=== PATIENT | female | born 1990 | race Caucasian/White ===

== ENCOUNTER 2022-07-20 08:25 | Outpatient (REF) | payer OTHER, SELFPAY ==
[2022-07-20 11:39] LABS: MANUAL DIFF FLAG NO
[2022-07-20 12:06] LABS: Basophils Percent Auto 0.8 % (0-2); Eosinophils Absolute Auto 0.2 X10*3/uL (0.0-0.4); Eosinophils Percent Auto 4.4 % (0-4); Hematocrit 45.9 % (37.0-47.0); Hemoglobin 14.9 g/dl (12.0-16.0); Imm Gran Abs Auto 0.01 X10*3/uL (0.00-0.03); Imm Gran Pct Auto 0.2 % (0.0-0.4); Lymphocytes Absolute Auto 1.9 X10*3/uL (1.2-4.9); Lymphocytes Percent Auto 36.1 % (20-40); Mean Corpuscular HGB Conc 32.5 g/dl (31.0-35.0); Mean Corpuscular Hemoglobin 29.2 pg (27.0-33.0); Mean Platelet Volume 11.5 fL (9.4-12.3); Monocytes Absolute Auto 0.5 X10*3/uL (0.1-1.2); Monocytes Percent Auto 8.8 % (2-11); Neutrophils Absolute Auto 2.6 x10*3/uL (2.0-8.3); Neutrophils Percent Auto 49.7 % (45-73); Platelet Count 213 X10*3/uL (160-400); Red Cell Distribution Width 12.6 % (11.0-16.0); White Blood Count 5.2 X10*3/uL (4.8-10.8)
[2022-07-20 13:01] LABS: Alanine Aminotransferase 27 U/L (0-31); Albumin Level 4.5 g/dL (3.5-5.0); Alkaline Phosphatase 73 U/L (39-117); Anion Gap 9 (12-20); Aspartate Amino Transferase 19 U/L (5-31); Bilirubin Total 1.9 mg/dL (0.0-1.0); Blood Urea Nitrogen 16 mg/dL (9-16); Calcium 9.6 mg/dL (8.4-10.2); Carbon Dioxide 30 mmol/L (22-29); Chloride 107 mmol/L (96-108); Cholesterol 149 mg/dL; Estimated Glomerular Filt Rate > 60; Glucose Fasting 105 mg/dL (60-99); HDL Cholesterol 58 mg/dL; LDL Cholesterol Calculated 75 mg/dl; Sodium 141 mmol/L (135-145); Total Protein 6.9 g/dL (6.5-8.0); Triglycerides 83 mg/dL
[2022-07-20 13:17] LABS: TSH reflex Free T4 1.69 uIU/mL (0.32-4.0)
[2022-07-20 14:15] LABS: Appearance Urine Clear; Color Urine Yellow; Glucose Urine UA Negative (Negative); Leukocyte Esterase Urine Negative (Negative); Nitrite Urine Negative (Negative); PH 5.5 (5.0-9.0); Specific Gravity - Urine 1.015 (1.005-1.025); Urine Blood Negative (Negative); Urine Ketones Negative (Negative); Urine Protein Negative (Neg-Trace)
[2022-07-20 14:20] LABS: Bacteria Urine None Seen (None Seen); Hyaline Casts Urine 0-2 /LPF (0-2); RBC Urine 0-2 /HPF (0-2); Squamous Epithelial Cell Urine 0-2 /HPF (0-2); WBC Urine 0-5 /HPF (0-5)
[2022-07-21 04:58] LABS: Hepatitis A Antibody IgG REACTIVE (Nonreactive); Hepatitis A Antibody IgM 0.16 Index (0-0.79); ~Hepatitis A Antibody IgM Nonreactive (Nonreactive)
[2022-07-24 21:58] LABS: Hepatitis Delta Antibody NEGATIVE
== END 2022-07-20 08:26 | disposition home or self-care (01) ==
LOC: HO.HMGCLDS 08:25
PROVIDERS: PCP Internal Medicine; Visit Provider Internal Medicine
DX: Z00.00 Encounter for general adult medical examination without abnormal findings (principal); Z77.21 Contact with and (suspected) exposure to potentially hazardous body fluids
CPT/HCPCS: 36415; 80053; 80061; 81001; 84443; 85025; 86692; 86708; 86709

== ENCOUNTER 2023-03-07 12:11 | Outpatient (AMB) | payer OTHER, SELFPAY ==
--- NOTE | 2023-03-07 12:20 | A.OFFPC_ITS ---
Vital Signs 03/07/23 12:22 Height 5 ft 9 in Weight 158 lb BMI 23.3 BP 110/60 Blood Pressure Location Rt brachial Position Sitting Pulse 68 Pulse Source Pulse Oximeter Pulse Oximetry (%) 95 Oxygen Delivery Method Room Air Intake Visit Reasons: R shoulder pain after fall Intake Note: Patient here for right shoulder pain. Allergies No Known Allergies Allergy (Verified 03/07/23 12:23) Medication List - Last Reconciled 03/07/23 by Jordana Krause MD triamcinolone acetonide 0.1% 1 appl dental BID valacyclovir (Valtrex) 2,000 mg (2 x 1 gram) PO Q12H Tobacco use date assessed: 07/20/22 Dental Screening Dental Screen Date: 03/07/23 Did you have a dental visit in the last 12 months?: No Did you have a dental problem in the last 6 months where you did not have access to dental care?: No Was dental information given to patient?: Patient has dentist HPI R shoulder pain after fall HPI Details Pt fell down on the right shoulder 6 weeks ago. Patient complains of persistent pain when reaching overhead and noticed a bump on the top of the shoulder joint slightly tender. Patient has been working out at the gym but modifying his weight lifting exercises. PFSH Family History Mother Substance use disorder Father Prostate [place] Social History Household Members Other:: single, welll balanced, Housing: House Patient Tobacco Use Status: Never used Tobacco e-Cigarette/Vaping Use: Never Used service: No Current occupational status: employed Cognitive needs: No Hearing needs: No Vision needs: No Questionnaire Thrive Questionnaire Date Thrive assessed: 07/20/22 KHANH-7 AMB Questionnaire KHANH-7 Date KHANH - 7 assessed: 07/20/22 Source: Developed by Drs. Juanjo Platt, Marisabel Haas, Delfino Phelan and colleagues, with an educational cooper from [employer]. Review of Systems Const All systems reviewed & are unremarkable except as noted in HPI and below Reports no additional complaints Eyes Reports no additional complaints Resp Reports no additional complaints GI Reports no additional complaints Physical exam (Primary Care) Vital Signs: Last Vital Signs Pulse 68 03/07/23 12:22 BP 110/60 03/07/23 12:22 Pulse Ox 95 03/07/23 12:22 Oxygen Delivery Method Room Air 03/07/23 12:22 BMI result Body Mass Index 23.3 Tobacco/Smoking Status: Tobacco use Status Tobacco use date assessed 07/20/22 03/07/23 12:25 Patient Tobacco Use Status Never used Tobacco 03/07/23 12:25 e-Cigarette/Vaping Use Never Used 03/07/23 12:25 Thrive Assessment: Date of Thrive Assessment Date Thrive assessed 07/20/22 03/07/23 12:25 Const General: no acute distress Neck Neck: Yes no lymphadenopathy and Yes supple Resp Effort & Inspection: normal respiratory effort Auscultation: clear to auscultation bilaterally Cardio Rhythm: regular rhythm Heart sounds: S1 normal heart sound present and S2 normal heart sound present Extrem Other: slightly decreased range of motion right shoulder, slightly more pronounced distant clavicle on the right with slight tenderness General: Yes no clubbing, cyanosis or edema Assessment and Plan Assessment & Plan (1) Injury of shoulder: Comment: R shoulder Code(s): S49.90XA - Unspecified injury of shoulder and upper arm, unspecified arm, initial encounter Plan: Obtain shoulder x-ray and referred for physical therapy Orders: Orders XR shoulder RT min 2V Today S49.90XA - Unspecified injury of shoulder and upper arm, unspecified arm, initial encounter PT Evaluation and Treatment Today S49.90XA - Unspecified injury of shoulder and upper arm, unspecified arm, initial encounter Coding Level of Care Code Est Pt Level 3 (75113) Diagnoses Injury of shoulder S49.90XA
[2023-03-07 12:22] VITALS: BP 110/60; PULSE 68; O2SAT 95; BMI 23.3
== END 2023-03-07 13:32 | disposition home or self-care (01) ==
PROVIDERS: PCP Internal Medicine; Visit Provider Internal Medicine
DX: S49.90XA Unspecified injury of shoulder and upper arm, unspecified arm, initial encounter (principal)
CPT/HCPCS: 99213

== ENCOUNTER 2023-03-07 13:04 | Outpatient (REF) | payer OTHER, SELFPAY ==
--- NOTE | ~2023-03-07 | XR_ITS ---
EXAMINATION: XR SHOULDER, RIGHT CLINICAL INFORMATION: Injury COMPARISON: None available. TECHNIQUE: AP external rotation, Grashey, scapular Y, and axillary views of the right shoulder. FINDINGS: Mild acromioclavicular arthritis. No evidence of acute fracture or dislocation. Glenohumeral joint space is maintained. No abnormal soft tissue calcification. No suspicious lung findings. XR/XR shoulder RT min 2V IMPRESSION: Mild acromioclavicular arthritis.
== END 2023-03-07 13:05 | disposition home or self-care (01) ==
LOC: HO.HMGCX 13:04
PROVIDERS: PCP Internal Medicine; Visit Provider Internal Medicine
DX: S49.91XA Unspecified injury of right shoulder and upper arm, initial encounter (principal); X58.XXXA Exposure to other specified factors, initial encounter; Y93.9 Activity, unspecified; Y92.9 Unspecified place or not applicable; Y99.9 Unspecified external cause status
CPT/HCPCS: 73030

== ENCOUNTER 2024-05-03 15:05 | Outpatient (AMB) | payer OTHER, SELFPAY ==
--- NOTE | 2024-05-03 15:13 | MHC.OFFVIS ---
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 Patient reports he was at work when he fell in an attic landing on his shoulder on a piece of wood. He has attended PT and acupuncture which provided temporary relief. He did not seek care, however his pain had gotten within the month and followed up with his PCP. Currently he has constant pain that radiates up into his neck. Intermittent swelling and a tender lump located above his shoulder. He has pain with ROM mostly with reaching behind his back. 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 States he was in an attic when he fell landing directly on the right shoulder sideways. He was seen by his primary care doctor when x-rays were taken and he was referred to physical therapy. Also had acupuncture. He states neither of these modalities has helped his pain. Continues to have some difficulty with motion and activity. [facility] Family History Mother Substance use disorder Father Prostate CA Social History (Updated 05/03/24 @ 15:18 by Anna Toussaint [facility]) Household Members Other:: single, welll balanced, Housing: House Patient Tobacco Use Status: Never used Tobacco e-Cigarette/Vaping Use: Never Used service: No Current occupational status: employed Current occupation: electric vehicle electrician, right hand dominant Cognitive needs: No Hearing needs: No Vision needs: No Review of Systems Const All systems reviewed & are unremarkable except as noted in HPI and below Physical Exam Vital Signs: BMI result Body Mass Index 23.6 Extrem Other: Right shoulder has a bony prominence with tenderness over the AC joint. Bony prominence is not reducible with pressure. He has full range of motion without deficits. No weakness with rotator cuff strength testing. Neurovascularly intact. Results Reviewed Results Reviewed: X-rays of the right shoulder obtained in the office today and reviewed by me show what appears to be an acromion fracture with callus bone. No other acute or chronic abnormalities noted. Assessment & Plan Assessment & Plan (1) Separation of right acromioclavicular joint: Code(s): S43.101A - Unspecified dislocation of right acromioclavicular joint, initial encounter Category: Medical (2) Fracture of acromion of scapula: Code(s): S42.123A - Displaced fracture of acromial process, unspecified shoulder, initial encounter for closed fracture Category: Medical Plan At this time an MRI of the right shoulder has been ordered to further evaluate the extent of the injury along the acromion process and within the shoulder and coracoclavicular ligament region. I explained to the patient that given that the injury happened in January I am unsure if there is any surgical intervention that would be beneficial to him at this time for a bony abnormality. If in fact there are some ligamentous abnormalities we can discuss treatment options. Patient is content with this plan and will see us back once the scan is complete. Orders: Orders MR shoulder RT wo con Today M77.8 - Other enthesopathies, not elsewhere classified, S42.123A - Displaced fracture of acromial process, unspecified shoulder, initial encounter for closed fracture, S43.101A - Unspecified dislocation of right acromioclavicular joint, initial encounter Coding Level of Care Code New Pt Level 3 (67254) Complex EM visit Add On G2211 Diagnoses Separation of right acromioclavicular joint S43.101A Fracture of acromion of scapula S42.123A
[2024-05-03 15:17] VITALS: BMI 23.6
--- OUTSIDE RECORDS SUMMARY | 2024-05-03 16:46 | XMS_ITS | Encounter Summary ---
Author Name [facility] Address [address] [place] [address] Care Team Providers Care Pool Servicer Name Role Phone ADRIA DUNBAR Primary Care Provider Unav ailable Insurance Providers: All historical and current Section Date Range: From patient's date of to the date document was created. This section includes the names of all active insurance providers for the patient. Insurance Provider Type of Coverage Plan Name Start of Policy Coverage End of Policy Coverage Group Number Member ID Insurance Provider's Telephone Number Policy Barnett's Name Patient's Relationship to Policy Barnett MEDICAID MEDICAID [facility]REC T May 26, 2022 [id number] PHAM PATIENT [facility]GANIZ May 26, 2022 [id number] GERRY PHAM PATIENT Selected Encounter This section includes the information on record at [place] for the Encounter. Date/Time Encounter Type Encounter Description Reason Provider Source Jul 05, 2023 02:00 PM OFFICE O/P NEW LOW 30 MIN PM&RS PHYSICIAN ICD-10-CM S43.51XA Sprain of right acromioclavicular joint, initial encounter NASREEN MOONEY E Encounter Template Text not used by [place] Assessments - Encounter Diagnoses This section includes the primary and secondary diagnoses documented for the Encounter. Date/Time Primary/Secondary Diagnosis Diagnosis Name Provider Source Aug 06, 2023 10:00 AM PRIMARY Sprain of right acromioclavicular joint, initial encounter NASREEN MOONEY [facility] Vital Signs: All taken on the encounter date This section contains inpatient and outpatient Vital Signs collected on the date of the Encounter. Date/Time Temperature Pulse Blood Pressure Respiratory Rate SP02 Pain Height Weight Body Mass Index Source Jul 05, 2023 02:01 PM 67 130/80 18 98 4 [facility] Social History: Smoking Status (Most current) and Tobacco Use (All prior to encounter date) This section includes the most current, and the historical, smoking and tobacco- related health factors from the [place] facility where the Encounter took place. Current Smoking Status This section includes the most current smoking, or tobacco-related health factor, from the [place] facility where the Encounter took place. Date/Time Current Smoking Status Comment Facil ity Jun 27, 2023 10:00 AM [place]-TOBACCO NEVER USED [facility] Tobacco Use History This section includes a history of the smoking, or tobacco-related health factors, that were collected on or before the date of the Encounter. The data comes from the [place] facility where the Encounter took place. Date/Time Smoking Status/Tobacco Use Comment F acility Sep 30, 2021 09:03 AM [place]-TOBACCO NEVER USED [facility] Encounter Notes: All associated encounter notes This section contains the clinical notes associated to the Encounter. Date/Time Encounter Note(s) Provider Source Jul 05, 2023 02:38 PM PHYSICAL MEDICINE REHAB CONSULT: LOCAL TITLE: CONSULT REPORT/PM&R STANDARD TITLE: PHYSICAL MEDICINE REHAB CONSULT DATE OF NOTE: JUL 05, 2023@14:38 ENTRY DATE: JUL 05, 2023@14:38:20 AUTHOR: KADI MOONEY COSIGNER: URGENCY: STATUS: COMPLETED JUL 05, 2023 DEDE PHAM is a 32 y/o RHD WHITE MALE, previously in AIR [employer] FROM Sep TO Jun from [employer] OF [employer] - [employer], who was seen today for consultation requested by _ today for chief complaint of right shoulder pain. Onset/Course: Fell out of an attic in January falling on the right shoulder. Trauma/inciting events: Fall directly on the right shoulder Quality/associated symptoms: Pain over the top of the shoulder is an aching sensation. Seems to be slightly better. He is working with a physical therapist and working on strengthening the muscles around the shoulder. 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 This likely is why it has taken so long to improve. He does not favor the use of anti-inflammatories so tends not to use. Denies weakness, numbness, or tingling in the lower extremities. Radiation: None Aggravating factors: Lifting overhead, reaching behind his back bent over rows throwing Alleviating factors: Rest Severity: 08/02/09 Overall average level of function: 08/02/09 Timing: intermittent) Medications/Therapy/Intervent ions history: Had a few sessions of occupational therapy then started to work with his physical therapist Systemic/Other symptoms: Denies fever, chills, night sweats, weight loss, saddle paresthesia, or bowel/bladder incontinence. Daily activities/exercise: Enjoys working out. Enjoys hiking. Enjoys hockey. He is an avid golfer. Has not been golfing yet this season. Pertinent prior procedures and/or imaging: PMHx as obtained from Chart: Active problems - Computerized Problem List is the source for the followin. Aphthous ulcer of mouth 2. Traveler's diarrhoea 3. Hyperbilirubinaemia 4. Irritable bowel syndrome with diarrhoea 5. Family history of prostate cancer PSxHx: None Fam Hx: Noncontributory Soc Hx: MARITAL STATUS - NEVER AIR FORCE FROM Sep TO Jun Service Connected Disabilities with % Eligibility: SERVICE CONNECTED 50% to 100% VERIFIED Total S/C %: 50 IRRITABLE COLON 30% S/C TINNITUS 10% S/C SPONDYLOLISTHESIS OR SEGMENTAL INSTABILITY 10% S/C ALLERGIC OR VASOMOTOR RHINITIS 10% S/C ALL: Patient has answered NKA MEDS: Active Outpatient Medications (including Supplies): DICLOFENAC NA 1% TOP GEL APPLY 2 GRAMS TOPICALLY FOUR PENDING TIMES A DAY FOR OSTEOARTHRITIS - USE DOSING CARD PROVIDED IN BOX TRIAMCINOLONE ACETONIDE 0.1% DENT PASTE APPLY SMALL AMOUNT ACTIVE TOPICALLY ONCE DAILY FOR PAINFUL, RED OR SWOLLEN MOUTH APPLY TO ORAL ULCERS No Active Remote Medications for this patient ROS: Constitutional - Denies fever or chills, night sweats, or unexplained weight loss. Head/Eyes/Ears/Neck- Denies headaches, dizziness, visual changes. Cardiovascular - Denies chest pain/palpitations, lower extremity swelling. Respiratory - Denies shortness of breath, or cough. GI - Denies nausea, vomiting, or loss of bowel fx/control. - Denies urinary difficulties or loss of bladder function. Musculoskeletal - See HPI. Neuro - See HPI. Psychiatric - See PMHx. Denies mood swings or change in behavior. Sleep - Denies nocturnal pain or excessive daytime fatigue. Skin/integuments - Denies rashes, lesions, or skin breakdown in the extremities. All other systems reviewed and are negative. PHYSICAL EXAMINATION: Vitals in chart. GEN: WD, WN. Awake, alert, cooperative with exam. In NAD. PSYCH: Good eye contact. Normal mood. Appropriately concerned. CVS: Extremities warm/well perfused. No lower extremity edema appreciated. PULM: Breathing unlabored, no accessory muscle use. ABD: Nondistended. EXTREMITIES: No cyanosis or edema of bilateral upper and lower extremities. SKIN: No rashes, lesions, or skin breakdown over exposed areas. MUSCULOSKELETAL/NEURO EXAM: Slightly more prominent AC joint. Tenderness over the AC joint with positive cross body abduction test. Negative liftoff test. No irritability about the biceps tendon. Rotator cuff is intact with internal and external rotation. No weakness. No pain elicited with resisted external rotation. No significant swelling noted about the acromioclavicular joint at this point. Range of motion is symmetrical but pain is in full flexion. Labs: Collection DT Spec WBC HGB HCT PLT K+/Pot Sodium GLUCOSE 06/01/2022 10:25 SERUM 4.9 139 96 06/01/2022 10:25 BLOOD 5.38 14.4 43.6 250 Collection DT Spec CREATIN AST ALT T BILI ALK AMY CHOL LDL-c 06/01/2022 10:25 SERUM 0.93 26 42 1.5 H 55 150 90 Collection DT Spec HDL TRIG TSH 06/01/2022 10:25 SERUM 49 57 1.28 CHEM 7 TREND LAB CUMULATIVE SELECTED Collection DT Spec GLUCOSE BUN CREATIN Sodium K+/Pot CL CO2 06/01/2022 10:25 SERUM 96 16 0.93 139 4.9 103 27 LAB CUMULATIVE SELECTED 2 No selection items chosen for this component. CHEM 7 Results Collection DT Spec Sodium K+/Pot CL CO2 GLUCOSE BUN 06/01/2022 10:25 SERUM 139 4.9 103 27 96 16 Liver Function Tests No data available for: AST ALT ALKALINE PHOSPHATASE ALBUMIN BILIRUBIN, TOTAL LDH PROTEIN,TOTAL HEMOGLOBIN A1C TREND No data available Diagnostic Studies: X-rays were reviewed and there are some slight elevation of the acromioclavicular joint. ASSESSMENT/PLAN: Patient is a 32-year-old [place] Had grade 1 AC sprain. Seems to be scarring again at this point. Trial of diclofenac gel will be provided. Continue working on strengthening. Limit overhead lifting activity until pain-free. Continue to work on scapular stabilizing muscles FOLLOW-UP:as needed Potential risks and side effects of any medication(s) prescribed today was reviewed with . Patient had many excellent questions, which I answered to the best of my ability and to patient's apparent satisfaction. MDM: 30 minutes which includes reviewing records, evaluating patient, documenting in medical record, educating, counseling and coordinating care. Medication Reconciliation: Outpatient: Has the patient been taking medications as documented in the EMLR? YES: The patient has been taking medications as documented in the EMLR. Essential Medication List for Review used to complete this medication reconciliation. INCLUDED IN THIS LIST: Alphabetical list of active outpatient prescriptions dispensed from this [facility] (local) and dispensed from another VA or [facility] facility (remote) as well as inpatient orders (local, pending and active), local clinic medications, locally documented non-VA medications, and local prescriptions that have or been discontinued in the past 90 days. - All changes in medications, including all non-VA/Herbal/OTC medications were entered into CPRS. - If there were any medications the patient should no longer take, they were discontinued. - The patient/caregiver was instructed to update this list, discard old lists, and take this list to the next appointment, whether with a VA or non-VA provider. /shreyas/ KADI MOONEY [facility] Signed: 07/05/2023 14:46 KADI MOONEY [facility]
--- OUTSIDE RECORDS SUMMARY | 2024-05-03 16:46 | XMS_ITS ---
Author Name [facility] [place] [facility] [place] Address [address] [place] [address] Care Team Providers Care World Geography Teacher Name Role Phone ADRIA DUNBAR Primary Care [...] Patient's Relationship to Policy [place] MEDICAID MEDICAID [facility] DIRE T May 26, 2022 [id number] GERRY PHAM PATIENT [facility] CE ORGANIZ May 26, 2022 [id number] GERRY PHAM PATIENT Selected Encounter This section includes the information on record at [place] for the Encounter. Date/Time Encounter Type Encounter Description Reason Provider Source Jun 27, 2023 10:00 AM OFFICE O/P EST LOW 20 MIN PRIMARY CARE/MEDICINE ICD-10-CM M25.511 Pain in right shoulder Lavern DUNBAR [place] Encounter Template Text not used by [place] Assessments - Encounter Diagnoses This section includes the primary and secondary diagnoses documented for the Encounter. Date/Time Primary/Secondary Diagnosis Diagnosis Name Provider Source Jun 27, 2023 10:30 AM PRIMARY Pain in right shoulder Lavern DUNBAR [place] [facility] [place] [facility] Jun 27, 2023 10:30 AM SECONDARY Family history of malignant neoplasm of prostate Lavern DUNBARJESSICA [place] [facility] [employer], [place] [facility] Plan of Treatment: Future Appointments (+ 6 months) and Future Tests (+/- 45 days) The Plan of Treatment section includes future care activities for the patient from all [place] treatmentfacilities. This section includes future appointments and future orders which are active, pending or scheduled. Future Appointments This section includes appointments that were scheduled to occur 6 months from the date of the Encounter, up to a maximum of 20 appointments. The data comes from all [place] treatment facilities. Appointment Date/Time Appointment Type Appointme nt Facility Name Jul 05, 2023 02:00 PM AMBULATORY - [facility] Vital Signs: All taken on the encounter date This section contains inpatient and outpatient Vital Signs collected on the date of the Encounter. Date/Time Temperature Pulse Blood Pressure Respiratory Rate SP02 Pain Height Weight Body Mass Index Source Jun 27, 2023 10:07 AM 75 99/62 18 97 155 23 [facility] Social History: Smoking Status (Most current) and Tobacco Use (All prior to encounter date) This section includes the most current, and the historical, smoking and tobacco- related health factors from the [place] facility where the Encounter took place. Current Smoking Status This section includes the most current smoking, or tobacco-related health factor, from the [place] facility where the Encounter took place. Date/Time Current Smoking Status Comment Sami ity Jun 27, 2023 10:00 AM [place]-TOBACCO NEVER USED [facility] [employer], INCN [facility] Tobacco Use History This section includes a history of the smoking, or tobacco-related health factors, that were collected on or before the date of the Encounter. The data comes from the [place] facility where the Encounter took place. Date/Time Smoking Status/Tobacco Use Comment F acility Sep 30, 2021 09:03 AM [place]-TOBAC[place] NEVER USED [facility] [place] [facility] Encounter Notes: All associated encounter notes This section contains the clinical notes associated to the Encounter. Date/Time Encounter Note(s) Provider Source Jun 27, 2023 10:09 AM PREVENTIVE MEDICINE NURSING NOTE: LOCAL TITLE: CLINICAL REMINDERS/NURSING STANDARD TITLE: PREVENTIVE MEDICINE NURSING NOTE DATE OF NOTE: JUN 27, 2023@10:09 ENTRY DATE: JUN 27, 2023@10:10:01 AUTHOR: JESSICA NYE COSIGNER: URGENCY: STATUS: COMPLETED Homelessness/Food Insecurity Screen: In the past 2 months, have you been living in stable housing that you own, rent, or stay in as part of a household? Yes - Living in stable housing. Are you worried or concerned that in the next 2 months you may NOT have stable housing that you own, rent, or stay in as part of a household? No - Not worried about housing near future [facility] [place] reports the following: Within the past 12 months, you worried whether your food would run out before you got money to buy more. Never true Within the past 12 months, the food you bought just didn't last and you didn't have money to get more. Never true Depression Screening: Perform PHQ-2 A PHQ-2 screen was performed. The score was 0 which is a negative screen for depression. Over the past two weeks, how often have you been bothered by the following problems? 1. Little interest or pleasure in doing things Not at all 2. Feeling down, depressed, or hopeless Not at all Tobacco Use Screening: The patient has never used tobacco. PTSD Screening: PC-PTSD-5 A PTSD screening test (PC-PTSD-5) was negative (score=0). IN THE PAST MONTH, have you ever had any experience that was so frightening, horrible or traumatic. For example: A serious accident or fire a physical or sexual assault or abuse An earthquake or flood A war Seeing someone be killed or seriously injured Having a loved one through homicide or suicide 1. Have you ever experienced this kind of event? NO 2. Had nightmares about the event(s) or thought about the event(s) when you did not want to? Response not required due to responses to other questions. 3. Tried hard not to think about the event(s) or went out of your way to avoid situations that reminded you of the event(s)? Response not required due to responses to other questions. 4. Been constantly on guard, watchful, or easily startled? Response not required due to responses to other questions. 5. Fisher numb or detached from people, activities, or your surroundings? Response not required due to responses to other questions. 6. Fisher guilty or unable to stop blaming yourself or others for the event(s) or any problems the event(s) may have caused? Response not required due to responses to other questions. Alcohol Use Screen (AUDIT-C): Alcohol Screen: SCREEN FOR ALCOHOL (AUDIT-C) An alcohol screening test (AUDIT-C) was negative (score=0). 1. How often did you have a drink containing alcohol in the past year? Consider a drink to be a 12 ounce can or bottle of regular beer, 8 ounces of malt liquor, a 5 ounce glass of table wine, or a 1.5 ounce shot of liquor (like scotch, gin, or vodka). Never 2. How many drinks containing alcohol did you have on a typical day when you were drinking in the past year? Response not required due to responses to other questions. 3. How often did you have six or more drinks on one occasion in the past year? Response not required due to responses to other questions. Suicide Screen: C-SSRS Screening [place] Suicide Severity Rating Scale (C-SSRS) screener 1. Over the past month, have you wished you were or wished you could go to sleep and not wake up? No 2. Over the past month, have you had any actual thoughts of killing yourself? No 3. Over the past month, have you been thinking about how you might do this? Response not required due to responses to other questions. 4. Over the past month, have you had these thoughts and had some intention of acting on them? Response not required due to responses to other questions. 5. Over the past month, have you started to work out or worked out the details of how to kill yourself? Response not required due to responses to other questions. 6. If yes, at any time in the past month did you intend to carry out this plan? Response not required due to responses to other questions. 7. In your lifetime, have you ever done anything, started to do anything, or prepared to do anything to end your life (for example, collected pills, obtained a gun, gave away valuables, went to the roof but didn't jump)? No 8. If YES, was this within the past 3 months? Response not required due to responses to other questions. /shreyas/ Jessica Nye RN Primary Care Staff Nurse Signed: 06/27/2023 10:11 JESSICA NYE [place] [facility] [place] [facility] Jun 27, 2023 09:11 AM PHYSICIAN NOTE: LOCAL TITLE: MD NOTE STANDARD TITLE: PHYSICIAN NOTE DATE OF NOTE: JUN 27, 2023@09:11 ENTRY DATE: JUN 27, 2023@09:11:28 AUTHOR: ZURI DUNBAR EXP COSIGNER: URGENCY: STATUS: COMPLETED HISTORY OF PRESENT ILLNESS: DEDE PHAM, is a 32 yo WHITE MALE who presents at the [place] [facility]. shoulder pain HPI. vet fell on right shoulder 4 mos ago, sustained injury to right shoulder with visible lump on superior aspect. he has pain and limited ROM. he has tried phys tx with limited response. plain xrays revealed AC arthritis and he has consult with med rehab next week. He denies weakness or numbness in his right arm or hand. vet has oral ulcers which respond to steroid paste SH. rare etoh intake Active problems - Computerized Problem List is the source for the followin. Aphthous ulcer of mouth 2. Traveler's diarrhoea 3. Hyperbilirubinaemia 4. Irritable bowel syndrome with diarrhoea 5. Family history of prostate cancer HISTORY: PERIOD OF SERVICE - [employer] FROM Sep TO Jun COMBAT SERVICE INDICATED: No SERVICE CONNECTED % - 50 VITAL SIGNS: Temperature 99.1 F [37.3 C] (06/02/2022 15:44) Blood Pressure 115/71 (06/02/2022 15:44) Pulse 75 (06/02/2022 15:44) Respiration 16 (06/02/2022 15:44) Pain 3 (06/02/2022 15:44) BMI BMI: 22.6 Weight 153 lb [69.40 kg] (06/02/2022 15:44) Pulse Oximetry 96% (06/02/2022 15:44) Review of Systems: CONSTITUTIONAL: No fever, no loss of appetite ENT: No sore throat, no cough CARDIOVASCULAR: No chest pain, no palpitations RESPIRATORY: No SOB, no wheezing GASTROINTESTINAL: No abd pain, no N/V/D, no change in stool EXAMINATION General: Well-appearing, young gentleman in no obvious distress. Mental Status: Alert and oriented x 3 Head: Normocephalic. Ext: large lump over Right AC joint of shoulder/ limited ROM Neuro: Normal speech & gait Psych: Normal mood and affect. Normal judgment. DATA REVIEW >> MEDICATIONS Reviewed Today (VA & Non VA) ALLERGIES: Patient has answered NKA Active Outpatient Medications (including Supplies): No Medications Found >> LABS REVIEWED TODAY: CHEM 7 TREND LAB CUMULATIVE SELECTED Collection DT Spec GLUCOSE BUN CREATIN Sodium K+/Pot CL CO2 06/01/2022 10:25 SERUM 96 16 0.93 139 4.9 103 27 LAB CUMULATIVE SELECTED 2 No selection items chosen for this component. CHEM 7 Results Collection DT Spec Sodium K+/Pot CL CO2 GLUCOSE BUN 06/01/2022 10:25 SERUM 139 4.9 103 27 96 16 CBC TREND Collection DT Spec WBC RBC HGB HCT MCV MCH PLT 06/01/2022 10:25 BLOOD 5.38 4.99 14.4 43.6 87.4 28.9 250 HEMOGLOBIN A1C TREND No data available LIPID PANEL TREND Collection DT Spec CHOL HDL CHO/HDL LDL-c TRIG 06/01/2022 10:25 SERUM 150 49 3.1 90 57 UREA NITROGEN - NONE FOUND CREATININE-EGFR - NONE FOUND LIVER PANEL TREND Collection DT Spec AST ALT T BILI ALK AMY T. PROT ALBUMIN 06/01/2022 10:25 SERUM 26 42 1.5 H 55 7.1 4.2 PSA TREND No data available Collection DT Spec TSH 06/01/2022 10:25 SERUM 1.28 ANEMIA PANEL TREND Collection DT Spec HCT 06/01/2022 10:25 BLOOD 43.6 PT INR TREND No data available >> HEALTH MAINTENANCE PREVENTIVE MEDICINE GOALS Advance Directive Screen MH AD Sep 30 Suicide Screen Sep 30 Toxic Exposure Screening DUE NOW BMI>30/>24.99 High Risk DUE NOW Homelessness/Food Insecurity Screen Sep 30 Depression Screening Sep 30 Screen for Embedded Fragments DUE NOW Hepatitis B Serology/Immunization DUE NOW HIV Screening DUE NOW PTSD Screening Sep 30 Tobacco Use Screening Sep 30 Influenza Immunization DUE NOW Medication Reconciliation DUE NOW Alcohol Use Screen (AUDIT-C) Sep 30 COVID-19 Immunization DUE NOW Sexual Orientation Jun 02 RHS Screen DUE NOW ASSESSMENT/PLAN: 1. shoulder pain/ AC arthritis and soft tissue swelling 2. FH of prostate cancer Plan 1. vet to see Med rehab next week about plan for shoulder pain 2. d/w vet issue of FH of prostate cancer, he may choose to have PSA testing done in his 30s since father was dx'd age 45 3. vet will f/u w/ this PCP in one year 4. refilled triamcinolone oral paste for oral ulcers LAB ORDERS FOR NEXT APPT. spent in patient care and education No barriers; Patient understands and agrees to current treatment plan. If pt has any questions, concerns, or changes in current health status he/she will call or come in to the [facility]. Medication Reconciliation: Outpatient: Has the patient been taking medications as documented in the EMLR? YES: The patient has been taking medications as documented in the EMLR. Essential Medication List for Review used to complete this medication reconciliation. INCLUDED IN THIS LIST: Alphabetical list of active outpatient prescriptions dispensed from this [place] (local) and dispensed from another [place] or [facility] facility (remote) as well as inpatient orders [...] with a VA or non-VA provider. /shreyas/ ADRIA DUNBAR MD PHYSICIAN Signed: 06/27/2023 10:30 MITCH DUNBAR [place] [facility]
--- OUTSIDE RECORDS SUMMARY | 2024-05-03 16:46 | XMS_ITS | Encounter Summary ---
Author Name [facility] Address [address] [place] [address] Care Team Providers Care Wound/Ostomy Nurse Name Role Phone ADRIA DUNBAR Primary Care [...] Patient's Relationship to Policy [place] MEDICAID MEDICAID [facility] DIRE T May 26, 2022 [id number] GERRY PHAM [facility]IENT [facility] May 26, 2022 [id number] GERRY PHAM PATIENT Selected Encounter This section includes the information on record at [place] for the Encounter. Date/Time Encounter Type Encounter Description Reason Provider Source May 10, 2023 07:30 AM THERAPEUTIC EXERCISES OCCUPATIONAL THERAPY ICD-10-CM M25.511 Pain in right shoulder MACHON,MORAIMA E IHE Encounter Template Text not used by [place] Assessments - Encounter Diagnoses This section includes the primary and secondary diagnoses documented for the Encounter. Date/Time Primary/Secondary Diagnosis Diagnosis Name Provider Source May 10, 2023 09:36 AM PRIMARY Pain in right shoulder MACHON,MORAIMA E [facility] Plan of Treatment: Future Appointments (+ 6 months) and Future Tests (+/- 45 days) The Plan of Treatment section includes future care activities for the patient from all [place] treatmentfacilities. This section includes future appointments and future orders which are active, pending or scheduled. Future Appointments This section includes appointments that were scheduled to occur 6 months from the date of the Encounter, up to a maximum of 20 appointments. The data comes from all [place] treatment facilities. Appointment Date/Time Appointment Type Appointme nt Facility Name Jun 27, 2023 10:00 AM AMBULATORY - MEDICINE [facility] Jul 05, 2023 02:00 PM AMBULATORY - REHAB MEDICIN E [facility] Social History: Smoking Status (Most current) and Tobacco Use (All prior to encounter date) This section includes the most current, and the historical, smoking and tobacco- related health factors from the [place] facility where the Encounter took place. Current Smoking Status This section includes the most current smoking, or tobacco-related health factor, from the [place] facility where the Encounter took place. Date/Time Current Smoking Status Comment Facil ity Sep 30, 2021 09:03 AM [place]-TOBACCO NEVER USED [facility] Encounter Notes: All associated encounter notes This section contains the clinical notes associated to the Encounter. Date/Time Encounter Note(s) Provider Source May 10, 2023 09:36 AM ADDENDUM: LOCAL TITLE: Addendum STANDARD TITLE: ADDENDUM DATE OF NOTE: MAY 10, 2023@09:36:27 ENTRY DATE: MAY 10, 2023@09:36:28 AUTHOR: MORAIMA TORRES EXP COSIGNER: URGENCY: STATUS: COMPLETED Pt is interested in being referred to ortho in order to explore options for discomfort at AC joint. appears to be AC joint widening on scanned images. please placed consult if in agreement. thanks! /shreyas/ Moraima Torres, MS OTR/L, CHT Occupational Therapist Signed: 05/10/2023 09:37 Receipt Acknowledged By: 05/11/2023 08:36 /shreyas/ ADRIA DUNBAR MD PHYSICIAN --- Original Document --- 05/10/23 OCCUPATIONAL THERAPY: Initial Evaluation date: Mar Progress Note Date: Treatment #: 3 Treatment time: 30 minutes Diagnosis: Pain in right Shoulder(ICD-10-CM M25.511) Provider: Dilan OBANDO Treatment Precautions: Patient identified by full name and date of SUBJECTIVE: Pt reports that his shoulder is actually a little better. He has to really move it in order to feel it. Pain Level: 2/10 at rest OBJECTIVE: THERAPEUTIC EXERCISE: *UBE 2' forward, 2' backward 2.0 *issued pt HEP as outlined below, w/ the exception of wall slides into flexion Access Code: [email or web address] URL: [email or web address] Date: 05/10/2023 Prepared by: [facility] Exercises - Prone Shoulder Extension - Single Arm - 1 x daily - 7 x weekly - 3 sets - 10 reps - Prone Single Arm Shoulder Horizontal Abduction with Scapular Retraction and Palm Down - 1 x daily - 7 x weekly - 3 sets - 10 reps - Shoulder Internal Rotation with Resistance - 1 x daily - 7 x weekly - 3 sets - 10 reps - Shoulder External Rotation with Anchored Resistance - 1 x daily - 7 x weekly - 3 sets - 10 reps - Sleeper Stretch - 1 x daily - 7 x weekly - 3 sets - 3 reps - 30 hold - Standing Row with Resistance with Anchored Resistance at Chest Height Palms Down - 1 x daily - 7 x weekly - 3 sets - 10 reps - Standing Shoulder Single Arm PNF D2 Flexion with Anchored Resistance - 1 x daily - 7 x weekly - 3 sets - 10 reps MINUTES: 17 MANUAL THERAPY: *mobilization/FDM to anterior shoulder musculature, seated MINUTES: 8 THERAPEUTIC DYNAMIC ACTIVITIES: MINUTES: NEUROMUSCULAR EDUCATION: MINUTES: OTHER: MINUTES: MODALITIES: MINUTES: [] Contraindication screen completed prior to modality [] Skin intact pre/post SELF CARE/EDUCATION: MINUTES: Patient education was provided for all aspects of care during this clinical encounter. ASSESSMENT: pt tolerated tx well this date. added on D2 flexion which was tolerated well. he also reports fatigue w/ ER. sleeper stretch is improving but still tight. pt reports that the bone (AC joint) is still the most bothersome. reviewed x-rays that were scanned in and appears to be AC joint separation (vs arthritis). he is interested in seeing ortho. PLAN: continue w/ OT POC; modify tx as needed. f/u in two weeks. pt is in agreement w/ this POC. /shreyas/ Moraima Torres, MS OTR/L, CHT Occupational Therapist Signed: 05/10/2023 09:36 MORAIMA TORRES [facility] [place] [place] [facility] May 10, 2023 07:20 AM OCCUPATIONAL THERAPY NOTE: LOCAL TITLE: OCCUPATIONAL THERAPY STANDARD TITLE: OCCUPATIONAL THERAPY NOTE DATE OF NOTE: MAY 10, 2023@07:20 ENTRY DATE: MAY 10, 2023@07:20:56 AUTHOR: MORAIMA TORRES EXP COSIGNER: URGENCY: STATUS: COMPLETED OCCUPATIONAL THERAPY Has ADDENDA Initial Evaluation date: Mar Progress Note Date: Treatment #: 3 Treatment time: 30 minutes Diagnosis: Pain in right Shoulder(ICD-10-CM M25.511) Provider: Dilan OBANDO Treatment Precautions: Patient identified by full name and date of SUBJECTIVE: Pt reports that his shoulder is actually a little better. He has to really move it in order to feel it. Pain Level: 2/10 at rest OBJECTIVE: THERAPEUTIC EXERCISE: *UBE 2' forward, 2' backward 2.0 *issued pt HEP as outlined below, w/ the exception of wall slides into flexion Access Code: [email or web address] URL: [email or web address] Date: 05/10/2023 Prepared by: MARTIN [facility] Exercises - Prone Shoulder Extension - Single Arm - 1 x daily - 7 x weekly - 3 sets - 10 reps - Prone Single Arm Shoulder Horizontal Abduction with Scapular Retraction and Palm Down - 1 x daily - 7 x weekly - 3 sets - 10 reps - Shoulder Internal Rotation with Resistance - 1 x daily - 7 x weekly - 3 sets - 10 reps - Shoulder External Rotation with Anchored Resistance - 1 x daily - 7 x weekly - 3 sets - 10 reps - Sleeper Stretch - 1 x daily - 7 x weekly - 3 sets - 3 reps - 30 hold - Standing Row with Resistance with Anchored Resistance at Chest Height Palms Down - 1 x daily - 7 x weekly - 3 sets - 10 reps - Standing Shoulder Single Arm PNF D2 Flexion with Anchored Resistance - 1 x daily - 7 x weekly - 3 sets - 10 reps MINUTES: 17 MANUAL THERAPY: *mobilization/FDM to anterior shoulder musculature, seated MINUTES: 8 THERAPEUTIC DYNAMIC ACTIVITIES: MINUTES: NEUROMUSCULAR EDUCATION: MINUTES: OTHER: MINUTES: MODALITIES: MINUTES: [] Contraindication screen completed prior to modality [] Skin intact pre/post SELF CARE/EDUCATION: MINUTES: Patient education was provided for all aspects of care during this clinical encounter. ASSESSMENT: pt tolerated tx well this date. added on D2 flexion which was tolerated well. he also reports fatigue w/ ER. sleeper stretch is improving but still tight. pt reports that the bone (AC joint) is still the most bothersome. reviewed x-rays that were scanned in and appears to be AC joint separation (vs arthritis). he is interested in seeing ortho. PLAN: continue w/ OT POC; modify tx as needed. f/u in two weeks. pt is in agreement w/ this POC. /shreyas/ Moraima Torres MS OTR/Angie, ASHELY Occupational Therapist Signed: 05/10/2023 09:36 05/10/2023 ADDENDUM STATUS: COMPLETED Pt is interested in being referred to ortho in order to explore options for discomfort at AC joint. appears to be AC joint widening on scanned images. please placed consult if in agreement. thanks! /jim Torres, OTR/Angie, CHT Occupational Therapist Signed: 05/10/2023 09:37 Receipt Acknowledged By: * AWAITING SIGNATURE * ADRIA DUNBAR ASHLIE E [place] [facility]
--- OUTSIDE RECORDS SUMMARY | 2024-05-03 16:46 | XMS_ITS | Continuity of Care Document ---
Author Name [facility] Organization [facility] Care Team Providers Care Meal Cook Name Role Phone [facility] Unavailable Unavailable Problems Combined list of problems from Department of Defense and Veterans Affairs facilities. It does not include entries that were removed or entered in error. Problem Status Onset Date Problem Type Date of Resolution Comments Source ASSESSMENT, POST-DEPLOYMENT, DOCUMENTED ON [id number] Inactive 020 Condition DoD Pain in left shoulder Active 020 Condition DoD Other specified counseling Inactive 020 Condition DoD Pain in thoracic spine Active 020 Condition DoD Pain in right shoulder Active 020 Condition DoD visit for: administrative purpose Inactive 012 Condition DoD Aphthous ulcer of mouth Active Condition Mar 10, 2023 Entered By: ADRIA DUNBAR Comment: vet may have viral induced mouth sores or other etiology/ vet has found acupuncture can help with this problem- [facility] Family history of prostate cancer Active Condition Oct 08, 2021 Entered By: ADRIA DUNBAR Comment: father diagnosed with prostate cancer age 45/ Dad is alive age 62- [address] 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 Irritable bowel syndrome with diarrhoea Active Condition Oct 08, 2021 Entered By: ADRIA DUNBAR Comment: vet had seen Dr Hailey michele GI in 2019/ trial of bentyl PRN [facility] Traveler's diarrhoea Active Condition Jun 07, 2022 Entered By: ADRIA DUNBAR Comment: vet hospitalized in [facility] and pos stool for Salmonella / symptoms resolving now that vet home-May 2022 [facility] Diagnosis: ICD-10-CM S43.51XA Sprain of right acromioclavicular joint, initial encounter Active Diagnosis [facility] Diagnosis: ICD-10-CM M25.511 Pain in right shoulder Active Diagnosis [facility] Diagnosis: ICD-10-CM R52 Pain, unspecified Active Diagnosis [facility] Medications Combined list of outpatient medications from Department of [employer] and Veterans Affairs facilities.Medications provided include 1) outpatient medications from the last 15 months, and 2) patient-reported medications. Medication Details Route Status Patient Instructions Prescription Expires Prescription Number Last Dispense Date Ordering Provider Order Date Order Qty Source DICLOFENAC NA 1% GEL,TOP APPLY 2 GRAMS TOPICALL Y FOUR TIMES A DAY FOR OSTEOART HRITIS - USE DOSING CARD PROVIDED IN BOX KALEB L ACTIVE 07/05/2024 [id number] KADI MOONEY 2023 100 [facility] Diclofenac Sodium 0.01mg/mg, Gel/Jelly, Topical APPLY 2 GRAMS TOPICALL Y FOUR TIMES A DAY FOR OSTEOART HRITIS - USE DOSING CARD PROVIDED IN BOX Active 07/05/2024 [id number] 4 KADI MOONEY 2023 100 [facility] Triamcinolo ne Acetonide (Kenalog-Or abase Eq.) Paste 0.1% Oral APPLY SMALL AMOUNT TOPICALL Y ONCE DAILY FOR PAINFUL, RED OR SWOLLEN MOUTH APPLY TO ORAL ULCERS Active 06/27/2024 [id number] ADRIA GARCIA 2023 5 [facility] TRIAMCINOLO NE ACETONIDE 0.1% PASTE,DENTA L APPLY SMALL AMOUNT TOPICALL Y ONCE DAILY FOR PAINFUL, RED OR SWOLLEN MOUTH APPLY TO ORAL ULCERS TOPICA L ACTIVE 06/27/2024 [id number] OPAL PRASAD 2023 5 [facility] Allergies, Adverse Reactions, Alerts Combined list of allergies from Department of Defense and Veterans Affairs facilities. It does not include entries that were removed or entered in error. Substance Category Reaction Severity Reaction type Status Date Reported Comments Source No Known Allergies Drug allergy (disorder) active 05/13/2011 [place] [address] Immunizations Combined list of available immunizations from the Department of Defense and Veterans Affairs facilities. Immunization Series Date Given Administered By Site Reaction Lot Number CVX Code Drug Bottle Carrier Status Comments Source TDAP 2021 115 complet ed [facility] COVID-19 (MODERNA), MRNA, LNP-S, PF, 100 MCG/0.5ML DOSE OR 50 MCG/0.25ML DOSE 2 2020 207 complet ed [facility] COVID-19 (MODERNA), MRNA, LNP-S, PF, 100 MCG/0.5ML DOSE OR 50 MCG/0.25ML DOSE 1 2020 207 complet ed [facility] Results Combined list of recent chemistry, hematology and other laboratory results from Department of Defense and Veterans Affairs, ranging from 15 months to all on record, depending upon the facility. Order Name Results Value Reference Range Date Interpretation Specimen Comments Source FECAL LACTOFER RIN LEUKOCYTES [PRESENCE] IN STOOL BY LIGHT MICROSCOPY POS 06/01 Specimen Type: FECES Comment: FORMED STOOL, UNABLE TO PROCESS PER WRLED Ordering Provider: ADRIA BINGHAM Report Released Date/Time: May 31, 2022 01:58 PM Reporting Lab: [facility] [address] [facility] [address] Performing Lab: [facility] [address] [facility] [address] [facility] C DIFF TOX B GENE PCR CLOSTRIDIO IDES DIFFICILE TOXIN B TCDB GENE [PRESENCE] IN STOOL BY YURIY WITH PROBE DETECTION comment 06/01 Specimen Type: FECES Comment: FORMED STOOL, UNABLE TO PROCESS PER WRLED Ordering Provider: ADRIA BINGHAM Report Released Date/Time: May 31, 2022 01:58 PM Reporting Lab: [facility] [address] [facility] [address] Performing Lab: [place] [facility] [place] [facility] [address] [facility] [address] [facility] CBC AND DIFF (AUTO) LEUKOCYTES [#/VOLUME] IN BLOOD BY AUTOMATED COUNT 5.38 10*3/uL 4.50 - 11.00 06/01 Specimen Type: BLOOD No comment entered. Ordering Provider: ADRIA BINGHAM Report Released Date/Time: May 31, 2022 01:58 PM Reporting Lab: [facility] [place] [facility] [address] [facility] [address] Performing Lab: [place] [facility] [place] [facility] [address] [facility] [address] [facility] [place] [facility] CBC AND DIFF (AUTO) ERYTHROCYT ES [#/VOLUME] IN BLOOD BY AUTOMATED COUNT 4.99 10*6/uL 4.23 - 5.66 06/01 Specimen Type: BLOOD No comment entered. Ordering Provider: ADRIA BINGHAM Report Released Date/Time: May 31, 2022 01:58 PM Reporting Lab: [place] [facility] [place] [facility] [address] [facility] [address] Performing Lab: [place] [facility] [place] [facility] [address] [facility] [address] [place] [facility] [place] [facility] CBC AND DIFF (AUTO) HEMOGLOBIN [MASS/VOLU ME] IN BLOOD 14.4 g/dL 12.8 - 17 06/01 Specimen Type: BLOOD No comment entered. Ordering Provider: ADRIA BINGHAM Report Released Date/Time: May 31, 2022 01:58 PM Reporting Lab: [place] [facility] [place] [facility] [address] [facility] [address] Performing Lab: [place] [facility] [place] [facility] [address] [facility] [address] [place] [facility] [place] [facility] CBC AND DIFF (AUTO) HEMATOCRIT [VOLUME FRACTION] OF BLOOD BY AUTOMATED COUNT 43.6 39.2 - 50.4 06/01 Specimen Type: BLOOD No comment entered. Ordering Provider: ADRIA BINGHAM Report Released Date/Time: May 31, 2022 01:58 PM Reporting Lab: [facility] [place] [facility] [address] [facility] [address] Performing Lab: [facility] [place] [facility] [address] [facility] [address] [facility] [place] [facility] CBC AND DIFF (AUTO) MCV [ENTITIC VOLUME] BY AUTOMATED COUNT 87.4 fL 82 - 99 06/01 Specimen Type: BLOOD No comment entered. Ordering Provider: ADRIA BINGHAM Report Released Date/Time: May 31, 2022 01:58 PM Reporting Lab: [facility] [place] [facility] [address] [facility] [address] Performing Lab: [facility] [place] [facility] [address] [facility] [address] [facility] [place] [facility] CBC AND DIFF (AUTO) MCHC [MASS/VOLU ME] BY AUTOMATED COUNT 33.0 g/dL 30.8 - 35.1 06/01 Specimen Type: BLOOD No comment entered. Ordering Provider: ADRIA BINGHAM Report Released Date/Time: May 31, 2022 01:58 PM Reporting Lab: [facility] [place] [facility] [address] [facility] [address] Performing Lab: [facility] [place] [facility] [address] [facility] [address] [facility] [place] [facility] CBC AND DIFF (AUTO) PLATELETS [#/VOLUME] IN BLOOD BY AUTOMATED COUNT 250 10*3/uL 140 - 360 06/01 Specimen Type: BLOOD No comment entered. Ordering Provider: ADRIA BINGHAM Report Released Date/Time: May 31, 2022 01:58 PM Reporting Lab: [facility] [place] [facility] [address] [facility] [address] Performing Lab: [facility] [place] [address] [address] [facility] CBC AND DIFF (AUTO) ERYTHROCYT E DISTRIBUTI ON WIDTH [RATIO] BY AUTOMATED COUNT 12.3 12.0 - 16.0 06/01 Specimen Type: BLOOD No comment entered. Ordering Provider: ADRIA BINGHAM Report Released Date/Time: May 31, 2022 01:58 PM Reporting Lab: [facility]ITAL[facility] [address] [address] Performing Lab: [facility]ENTRN [facility] [address] [facility] [address] [facility]ENS B[facility]TISTN [facility] CBC AND DIFF (AUTO) MONOCYTES [#/VOLUME] IN BLOOD BY AUTOMATED COUNT 0.45 10*3/uL 0.30 - 1.10 06/01 Specimen Type: BLOOD No comment entered. Ordering Provider: ADRIA BINGHAM Report Released Date/Time: May 31, 2022 01:58 PM Reporting Lab: [facility] [place] [facility] [address] [facility] [address] Performing Lab: [facility] TRN [facility]PITALUSETS [facility] [address] [facility] [address] [facility] B[facility]ISTN [facility] CBC AND DIFF (AUTO) MCH [ENTITIC MASS] BY AUTOMATED COUNT 28.9 pg 26.2 - 32.6 06/01 Specimen Type: BLOOD No comment entered. Ordering Provider: ADRIA BINGHAM Report Released Date/Time: May 31, 2022 01:58 PM Reporting Lab: [facility] [place] [facility] [address] [facility] [address] Performing Lab: [facility]SDENTRN [facility]PITALUSETS [facility] [address] [facility] [address] [facility]ENS B[facility]TISTN [facility]ITALUSE [facility] CBC AND DIFF (AUTO) NEUTROPHIL S/100 LEUKOCYTES IN BLOOD BY AUTOMATED COUNT 54.6 43.7 - 75.8 06/01 Specimen Type: BLOOD No comment entered. Ordering Provider: ADRIA BINGHAM Report Released Date/Time: May 31, 2022 01:58 PM Reporting Lab: [facility] [place] [facility] [address] [facility] [address] Performing Lab: [facility] [place] [facility] [address] [facility] [address] [facility] CBC AND DIFF (AUTO) LYMPHOCYTE S/100 LEUKOCYTES IN BLOOD BY AUTOMATED COUNT 33.3 14.0 - 42.3 06/01 Specimen Type: BLOOD No comment entered. Ordering Provider: ADRIA BINGHAM Report Released Date/Time: May 31, 2022 01:58 PM Reporting Lab: [facility] [place] [facility] [address] [facility] [address] Performing Lab: [facility] [place] [facility] [address] [facility] [address] [facility] CBC AND DIFF (AUTO) MONOCYTES/ 100 LEUKOCYTES IN BLOOD BY AUTOMATED COUNT 8.4 5.1 - 13.7 06/01 Specimen Type: BLOOD No comment entered. Ordering Provider: ADRIA BINGHAM Report Released Date/Time: May 31, 2022 01:58 PM Reporting Lab: [facility] [place] [facility] [address] [facility] [address] Performing Lab: [facility] [place] [facility] [address] [facility] [address] [facility] CBC AND DIFF (AUTO) EOSINOPHIL S/100 LEUKOCYTES IN BLOOD BY AUTOMATED COUNT 2.8 0.4 - 6.8 06/01 Specimen Type: BLOOD No comment entered. Ordering Provider: ADRIA BINGHAM Report Released Date/Time: May 31, 2022 01:58 PM Reporting Lab: [facility] [place] [facility] [address] [facility] [address] Performing Lab: [facility] [place] [facility] [address] [facility] [address] [facility] CBC AND DIFF (AUTO) BASOPHILS/ 100 LEUKOCYTES IN BLOOD BY AUTOMATED COUNT 0.7 0.1 - 2.0 06/01 Specimen Type: BLOOD No comment entered. Ordering Provider: ADRIA BINGHAM Report Released Date/Time: May 31, 2022 01:58 PM Reporting Lab: [facility] [place] [address] [address] Performing Lab: [facility] [place] [address] [address] [facility] CBC AND DIFF (AUTO) NEUTROPHIL S [#/VOLUME] IN BLOOD BY AUTOMATED COUNT 2.94 10*3/uL 2.20 - 7.60 06/01 Specimen Type: BLOOD No comment entered. Ordering Provider: ADRIA BINGHAM Report Released Date/Time: May 31, 2022 01:58 PM Reporting Lab: [facility] [place] [address] [address] Performing Lab: [place] [facility] [place] [address] [address] [place] [facility] [place] [facility] CBC AND DIFF (AUTO) LYMPHOCYTE S [#/VOLUME] IN BLOOD BY AUTOMATED COUNT 1.79 10*3/uL 1.00 - 3.20 06/01 Specimen Type: BLOOD No comment entered. Ordering Provider: ADRIA BINGHAM Report Released Date/Time: May 31, 2022 01:58 PM Reporting Lab: [facility] [place] [address] [address] Performing Lab: [facility] [place] [address] [address] [facility] [place] [facility] CBC AND DIFF (AUTO) EOSINOPHIL S [#/VOLUME] IN BLOOD BY AUTOMATED COUNT 0.15 10*3/uL 0.03 - 0.44 06/01 Specimen Type: BLOOD No comment entered. Ordering Provider: ADRIA BINGHAM Report Released Date/Time: May 31, 2022 01:58 PM Reporting Lab: [facility] [place] [address] [address] Performing Lab: [facility] [place] [address] [place] [address] [facility]N [facility] CBC AND DIFF (AUTO) BASOPHILS [#/VOLUME] IN BLOOD BY AUTOMATED COUNT 0.04 10*3/uL 0.01 - 0.13 06/01 Specimen Type: BLOOD No comment entered. Ordering Provider: ADRIA BINGHAM Report Released Date/Time: May 31, 2022 01:58 PM Reporting Lab: [facility]TRN [place] [facility] [address] [facility] [address] Performing Lab: [facility]RL TRN [facility]ITALUSETS [address] [address] [facility] B[facility]ISTN [facility]ITALUSE [facility] CBC AND DIFF (AUTO) IMMATURE GRANULOCYT ES/100 LEUKOCYTES IN BLOOD BY AUTOMATED COUNT 0.2 0.0 - 0.7 06/01 Specimen Type: BLOOD No comment entered. Ordering Provider: ADRIA BINGHAM Report Released Date/Time: May 31, 2022 01:58 PM Reporting Lab: [facility] [place] [address] [address] Performing Lab: [facility]ITALUSETS [address] [address] [facility]N [facility]ITALUSE [facility] CBC AND DIFF (AUTO) IMMATURE GRANULOCYT ES [#/VOLUME] IN BLOOD 0.01 10*3/uL 0.00 - 0.06 06/01 Specimen Type: BLOOD No comment entered. Ordering Provider: ADRIA BINGHAM Report Released Date/Time: May 31, 2022 01:58 PM Reporting Lab: [facility]ITAL[facility]ETS [address] [address] Performing Lab: [facility]SDENTRN [facility]PITALUSETS [address] [address] [facility] BASIC METABOLI C PANEL (non-fas ting) UREA NITROGEN [MASS/VOLU ME] IN SERUM OR PLASMA 16 mg/dL 7 - 25 06/01 Specimen Type: SERUM No comment entered. Ordering Provider: ADRIA BINGHAM Report Released Date/Time: May 31, 2022 01:58 PM Reporting Lab: [facility] [place] [facility] [address] [facility] [address] Performing Lab: [facility] [place] [facility] [address] [facility] [address] [facility] BASIC METABOLI C PANEL (non-fas ting) GLUCOSE [MASS/VOLU ME] IN SERUM OR PLASMA 96 mg/dL 65 - 100 06/01 Specimen Type: SERUM No comment entered. Ordering Provider: ADRIA BINGHAM Report Released Date/Time: May 31, 2022 01:58 PM Reporting Lab: [place] [facility] [place] [address] [address] Performing Lab: [place] [facility]ITAL[facility] [address] [address] [facility] W[facility]N [facility] BASIC METABOLI C PANEL (non-fas ting) SODIUM [MOLES/VOL UME] IN SERUM OR PLASMA 139 mmol/L 135 - 145 06/01 Specimen Type: SERUM No comment entered. Ordering Provider: ADRIA BINGHAM Report Released Date/Time: May 31, 2022 01:58 PM Reporting Lab: [facility] [place] [facility] [address] [facility] [address] Performing Lab: [facility] [place] [address] [address] [place] [facility] [place] [facility] BASIC METABOLI C PANEL (non-fas ting) POTASSIUM [MOLES/VOL UME] IN SERUM OR PLASMA 4.9 mmol/L 3.5 - 5.0 06/01 Specimen Type: SERUM No comment entered. Ordering Provider: ADRIA BINGHAM Report Released Date/Time: May 31, 2022 01:58 PM Reporting Lab: [facility] [place] [address] [address] Performing Lab: [place] [facility] [place] [address] [address] [facility] BASIC METABOLI C PANEL (non-fas ting) CHLORIDE [MOLES/VOL UME] IN SERUM OR PLASMA 103 mmol/L 100 - 110 06/01 Specimen Type: SERUM No comment entered. Ordering Provider: ADRIA BINGHAM Report Released Date/Time: May 31, 2022 01:58 PM Reporting Lab: [address] [address] Performing Lab: [facility] [address] [address] [facility] BASIC METABOLI C PANEL (non-fas ting) CARBON DIOXIDE, TOTAL [MOLES/VOL UME] IN SERUM OR PLASMA 27 meq/L 20 - 30 06/01 Specimen Type: SERUM No comment entered. Ordering Provider: ADRIA BINGHAM Report Released Date/Time: May 31, 2022 01:58 PM Reporting Lab: [address] [address] Performing Lab: [address] [address] [facility] BASIC METABOLI C PANEL (non-fas ting) CREATININE [MASS/VOLU ME] IN SERUM OR PLASMA 0.93 mg/dL 0.50 - 1.40 06/01 Specimen Type: SERUM No comment entered. Ordering Provider: ADRIA BINGHAM Report Released Date/Time: May 31, 2022 01:58 PM Reporting Lab: [address] [address] Performing Lab: [address] [address] [facility] BASIC METABOLI C PANEL (non-fas ting) GLOMERULAR FILTRATION RATE/1.73 SQ M.PREDICTE D [VOLUME RATE/AREA] IN SERUM, PLASMA OR BLOOD BY CREATININE -BASED FORMULA (CKD-EPI) >90mL/mi n 60 06/01 Specimen Type: SERUM No comment entered. Ordering Provider: ADRIA BINGHAM Report Released Date/Time: May 31, 2022 01:58 PM Reporting Lab: [facility] [place] [facility] [address] [facility] [address] Performing Lab: [facility] [place] [facility] [address] [facility] [address] [facility] [place] [facility] LIVER FUNCTION PROTEIN [MASS/VOLU ME] IN SERUM OR PLASMA 7.1 g/dL 6.0 - 8.3 06/01 Specimen Type: SERUM No comment entered. Ordering Provider: ADRIA BINGHAM Report Released Date/Time: May 31, 2022 01:58 PM Reporting Lab: [facility] [place] [facility] [address] [facility] [address] Performing Lab: [place] [facility] [place] [facility] [address] [facility] [address] [place] [facility] [facility] LIVER FUNCTION ALBUMIN [MASS/VOLU ME] IN SERUM OR PLASMA 4.2 g/dL 3.5 - 5.0 06/01 Specimen Type: SERUM No comment entered. Ordering Provider: ADRIA BINGHAM Report Released Date/Time: May 31, 2022 01:58 PM Reporting Lab: [facility] [place] [facility] [address] [facility] [address] Performing Lab: [facility] [place] [facility] [address] [facility] [address] [place] [facility] [facility] LIVER FUNCTION ALKALINE PHOSPHATAS E [ENZYMATIC ACTIVITY/V OLUME] IN SERUM OR PLASMA 55 U/L 40 - 150 06/01 Specimen Type: SERUM No comment entered. Ordering Provider: ADRIA BINGHAM Report Released Date/Time: May 31, 2022 01:58 PM Reporting Lab: [facility] [place] [facility] [address] [facility] [address] Performing Lab: [facility] [place] [facility] [address] [facility] [address] [facility] [place] [facility] LIVER FUNCTION ASPARTATE AMINOTRANS FERASE [ENZYMATIC ACTIVITY/V OLUME] IN SERUM OR PLASMA 26 U/L 5 - 34 06/01 Specimen Type: SERUM No comment entered. Ordering Provider: ADRIA BINGHAM Report Released Date/Time: May 31, 2022 01:58 PM Reporting Lab: [place] [facility] [facility] [address] [facility] [address] Performing Lab: [place] [facility] [facility] [address] [facility] [phone] [facility] LIVER FUNCTION ALANINE AMINOTRANS FERASE [ENZYMATIC ACTIVITY/V OLUME] IN SERUM OR PLASMA 42 U/L 6 - 55 06/01 Specimen Type: SERUM No comment entered. Ordering Provider: ADRIA BINGHAM Report Released Date/Time: May 31, 2022 01:58 PM Reporting Lab: [place] [facility] [address] [address] Performing Lab: [place] [facility] [facility] [address] [facility] [address] [facility] LIVER FUNCTION BILIRUBIN. TOTAL [MASS/VOLU ME] IN SERUM OR PLASMA 1.5 mg/dL 0.2 - 1.2 06/01 H Specimen Type: SERUM No comment entered. Ordering Provider: ADRIA BINGHAM Report Released Date/Time: May 31, 2022 01:58 PM Reporting Lab: [place] [facility] [facility] [address] [facility] [address] Performing Lab: [place] [address] [id number] [facility] TSH THYROTROPI N [UNITS/VOL UME] IN SERUM OR PLASMA 1.28 u[IU]/mL 0.35 - 5.00 06/01 Specimen Type: SERUM No comment entered. Ordering Provider: ADRIA BINGHAM Report Released Date/Time: May 31, 2022 01:58 PM Reporting Lab: [facility] [place] [facility] [address] [facility] [address] Performing Lab: [facility] [place] [facility] [address] [facility] [address] [place] [facility] [facility] LIPID PANEL, NON FASTING CHOLESTERO L [MASS/VOLU ME] IN SERUM OR PLASMA 150 mg/dL 7 - 199 06/01 Specimen Type: SERUM No comment entered. Ordering Provider: ADRIA BINGHAM Report Released Date/Time: May 31, 2022 01:58 PM Reporting Lab: [place] [facility] [place] [facility] [address] [facility] [address] Performing Lab: [place] [facility] [place] [facility] [address] [facility] [address] [facility] [place] [facility] LIPID PANEL, NON FASTING TRIGLYCERI DE [MASS/VOLU ME] IN SERUM OR PLASMA 57 mg/dL 0 - 150 06/01 Specimen Type: SERUM No comment entered. Ordering Provider: ADRIA BINGHAM Report Released Date/Time: May 31, 2022 01:58 PM Reporting Lab: [place] [facility] [place] [facility] [address] [facility] [address] Performing Lab: [place] [facility] [place] [facility] [address] [facility] [address] [facility] [place] [facility] LIPID PANEL, NON FASTING CHOLESTERO L IN LDL [MASS/VOLU ME] IN SERUM OR PLASMA BY CALCMACKENZIE Ybarra 90 mg/dL 0 - 129 06/01 Specimen Type: SERUM No comment entered. Ordering Provider: ADRIA BINGHAM Report Released Date/Time: May 31, 2022 01:58 PM Reporting Lab: [facility] [place] [facility] [address] [facility] [address] Performing Lab: [facility] [place] [facility] [address] [facility] [address] [facility] [place] [facility] LIPID PANEL, NON FASTING CHOLESTERO L.TOTAL/CH OLESTEROL IN HDL [MASS RATIO] IN SERUM OR PLASMA 3.1 02/07 /2023 Specimen Type: SERUM No comment entered. Ordering Provider: ADRIA BINGHAM Report Released Date/Time: May 31, 2022 01:58 PM Reporting Lab: [address] [address] Performing Lab: [address] [address] [facility] LIPID PANEL, NON FASTING CHOLESTERO L IN HDL [MASS/VOLU ME] IN SERUM OR PLASMA 49 mg/dL 40 - 60 06/01 Specimen Type: SERUM No comment entered. Ordering Provider: ADRIA BINGHAM Report Released Date/Time: May 31, 2022 01:58 PM Reporting Lab: [address] [address] Performing Lab: [address] [address] [facility] HEPATITI S C ANTIBODY (HCV)-AR C HEPATITIS C VIRUS AB [PRESENCE] IN SERUM NON-REAC TIVE 06/01 Specimen Type: SERUM Comment: Hep C Ab: No HCV antibody detected. If recent infection is suspected or other evidence suggests HCV infection, consider HCV nucleic acid testing Ordering Provider: ADRIA BINGHAM Report Released Date/Time: May 31, 2022 01:58 PM Reporting Lab: [address] [address] Performing Lab: [address] [address] [facility] BILIRUBI N, DIRECT BILIRUBIN. DIRECT [MASS/VOLU ME] IN SERUM OR PLASMA 0.5 mg/dL 0 - 0.5 06/01 Specimen Type: SERUM No comment entered. Ordering Provider: ADRIA BINGHAM Report Released Date/Time: May 31, 2022 01:58 PM Reporting Lab: [address] [place] [address] Performing Lab: [facility] [place] [facility] [address] [facility] [address] [facility] [place] [facility] Vital Signs Combined list of inpatient and outpatient Vital Signs from Department of Defense and Veterans Affairs, ranging from 12 months to all on record, depending upon the facility. Vital Sign Value Date Comments Source SYSTOLIC BLOOD PRESSURE 130 07/05/19 24 14:01:01 [facility] [place] DIASTOLIC BLOOD PRESSURE 80 024 14:01:01 [facility] [place] PULSE OXIMETRY 98 07/05/2023 14:01:01 [facility] PAIN 4 07/05/2023 14:01:01 [facility] [place] PULSE 67 07/05/2023 14:01:01 [facility] [place] RESPIRATION 18 07/05/2023 14:01:01 [facility] [place] SYSTOLIC BLOOD PRESSURE 99 06/27/19 24 10:07:19 [facility] [place] DIASTOLIC BLOOD PRESSURE 62 024 10:07:19 [facility] [place] PULSE OXIMETRY 97 06/27/2023 10:07:19 [facility] WEIGHT 155 06/27/2023 10:07:19 [facility] [place] BMI 23kg/m2 06/27/2023 10:07:19 [facility] [place] PULSE 75 06/27/2023 10:07:19 [facility] [place] RESPIRATION 18 06/27/2023 10:07:19 [facility] [place] Encounters Combined list of: 1) Encounters from Department of Veterans Affairs facilities going back up to thelast 18 months. 2) Encounters from the Department of Defense facilities going back up to 280 months. Location Location Details Encounter Type Encounter Number Reason For Visit Attending Provider ADM Date DC Date Status Disposition Source [facility] [address](LINDSEY Thrasher) OUTPATIENT [id number] ONESIMO Galvin N 05/13 Released w/[facility] Limitations [facility] [place] [place] [address](Lavern Thrsaher) Theater Facility OUTPATIENT [id number] Theater Provider 12/29 Released w/o Limitations [facility] OUTPATIENT [id number] Theater Provider 12/29 Released w/o Limitations [facility] OUTPATIENT [id number] Theater Provider 01/03 Released w/o Limitations [facility] OUTPATIENT [id number] Theater Provider 01/12 Released w/o Limitations [facility] OUTPATIENT [id number] Theater Provider 01/17 Released w/o Limitations [facility] OUTPATIENT [id number] Theater Provider 01/31 Released w/o Limitations [facility] OUTPATIENT [id number] Theater Provider 04/21 Released w/o Limitations [facility] Encounter [id number] 01/10 [facility] En[facility] [id number] 01/27 [facility] En[facility] [id number] 01/28 [facility] Encounter [id number] 03/01 [facility] [place] OFFICE O/P EST SF 10-19 MIN [id number] Diagnos is: ICD-10- CM R52 Pain, unspeci fied
MAGDI STOUT ISTOPHER M 03/03 [facility] En[facility] [id number] 03/03 [facility] En[facility] [id number] 03/07 [facility] Out[facility] Encounter [id number] 03/14 [facility] Encounter [id number] 03/18 [facility] Encounter [id number] 03/25 [facility] Encounter [id number] 03/25 [facility] Encounter [id number] 03/29 [facility] THERAPEUTI C EXERCISES [id number] Diagnos is: ICD-10- CM M25.511 Pain in right shoulde r
MAURIZIO TORRES LIE E 03/31 [facility] En[facility] [id number] 04/12 [facility] Out[facility] Encounter [id number] 04/14 [facility] [place] THERAPEUTI C EXERCISES [id number] Diagnos is: ICD-10- CM M25.511 Pain in right shoulde r
MAURIZIO TORRES E 04/27 [facility] [place] [facility] [place] [facility] THERAPEUTI C EXERCISES [id number] Diagnos is: ICD-10- CM M25.511 Pain in right shoulde r
MAURIZIO TORRES E 05/10 [facility] [place] [facility] [place] [facility] Outpatient Encounter [id number] 05/19 [facility] [place] [facility] [place] [facility] OFFICE O/P EST LOW 20 MIN [id number] Diagnos is: ICD-10- CM M25.511 Pain in right shoulde r
ADRIA KRAUS 06/26 [facility] [place] [facility] [place] [facility] OFFICE O/P NEW LOW 30 MIN [id number] Diagnos is: ICD-10- CM S43.51X A Sprain of right acromio clavicu lar joint, initial encount er
Gibran MOONEY 07/04 [place] [facility] [place] [place] [facility] Procedures Combined list of: 1) Procedures from Department of Veterans Affairs facilities going back up to thelast 18 months, not all [place] non-surgical procedures are included; 2) All procedures from the Department of Defense facilities. Procedure Procedure Type Code Date Perfomer Comments Sourc e THERAPEUTIC, PROPHYLACTIC, O R DIAGNOSTIC INJECTION (SPECIFY SUBSTANCE OR DRUG); SUBCUTANEOUS OR INTRAMUSCULAR 04/15/2011 [facility] Social History Combined list of available smoking, tobacco, and other social history from Department of Defense and Veterans Affairs facilities. Social History Type Response Date Comment Sourc e Tobacco [facility] History of tobacco use [place]-TO[place]AC[place] NEVER USED 09/30/2021 [place] [facility] [place] [facility] This section is an empty social history section. [facility] Plan of Care List of future care activities from Department of Veterans Affairs facilities. Additional future care activities may be listed in the Assessment and Plan section. Date/Time Care Activity Care Activity Detail Facili ty 06/21/2024 AMBULATORY - MEDICINE AMBULATORY - MEDICI [facility]
--- OUTSIDE RECORDS SUMMARY | 2024-05-03 16:46 | XMS_ITS | Encounter Summary ---
Author Name [facility] Organization [facility] Address [address] [place] [address] Care Team Providers Care Car Park Attendant Name Role Phone ADRIA DUNBAR Primary Care [...] Policy [place] MEDICAID MEDICAID [facility] DIREC T May 26, 2022 [id number] PATIENT [facility] May 26, 2022 [id number] [address]AM PATIENT Selected Encounter This section includes the information on record at [place] for the Encounter. Date/Time Encounter Type Encounter Description Reason Pro vider Source May 19, 2023 12:00 AM Outpatient Encounter COMMUNITY CARE CONSULT IHE Encounter Template Text not used by [place] Plan of Treatment: Future Appointments (+ 6 months) and Future Tests (+/- 45 days) The Plan of Treatment section includes future care activities for the patient from all [place] treatmentfacilities. This section includes future appointments and future orders which are active, pending or scheduled. Future Appointments This section includes appointments that were scheduled to occur 6 months from the date of the Encounter, up to a maximum of 20 appointments. The data comes from all [place] treatment facilities. Appointment Date/Time Appointment Type Appointme nt Facility Name Jun 27, 2023 10:00 AM [facility] Jul 05, 2023 02:00 PM AMBULATORY - REHAB MEDICIN E [facility] Social History: Smoking Status (Most current) and Tobacco Use (All prior to encounter date) This section includes the most current, and the historical, smoking and tobacco- related health factors from the [place] facility where the Encounter took place. Current Smoking Status This section includes the most current smoking, or tobacco-related health factor, from the [place] facility where the Encounter took place. Date/Time Current Smoking Status Comment Facil ity Sep 30, 2021 09:03 AM VA-TOBACCO NEVER USED [facility] Encounter Notes: All associated encounter notes This section contains the clinical notes associated to the Encounter. Date/Time Encounter Note(s) Provider Source May 19, 2023 12:00 AM NONVA CONSULT: LOCAL TITLE: COMMUNITY CARE-CONSULT RESULT NOTE STANDARD TITLE: NONVA CONSULT DATE OF NOTE: MAY 19, 2023 ENTRY DATE: MAY 27, 2023@14:24:59 AUTHOR: ASHLEY SANCHEZ EXP COSIGNER: URGENCY: STATUS: COMPLETED VistA Imaging - Scanned Document SCANNED DOCUMENT SIGNATURE NOT REQUIRED Electronically Filed: 05/27/2023 by: ASHLEY SANTORO [facility]
== END 2024-05-03 15:36 | disposition home or self-care (01) ==
PROVIDERS: PCP Internal Medicine; Visit Provider Physician Assistant
DX: S43.101A Unspecified dislocation of right acromioclavicular joint, initial encounter (principal); S42.121A Displaced fracture of acromial process, right shoulder, initial encounter for closed fracture
CPT/HCPCS: 99203; G2211

== ENCOUNTER → 2024-05-03 15:05 | Outpatient (BNVA) | payer OTHER, SELFPAY | PROVIDERS: PCP Internal Medicine; Visit Provider Physician Assistant ==

== ENCOUNTER 2024-06-01 17:53 | Outpatient (REF) | payer OTHER, SELFPAY ==
--- NOTE | ~2024-06-01 | MR_ITS ---
MR/MR shoulder RT wo con IMPRESSION: Moderate osteoarthritis of the AC joint. Findings suggestive of a mild bursal surface partial tear of the distal supraspinatus tendon. Electronically signed by: Juanjo Last MD 06/04/2024 08:00 AM [facility]
== END 2024-06-01 17:54 | disposition home or self-care (01) ==
LOC: HO.MRI 17:53
PROVIDERS: Visit Provider Physician Assistant
DX: M77.8 Other enthesopathies, not elsewhere classified (principal); S43.101A Unspecified dislocation of right acromioclavicular joint, initial encounter; S42.123A Displaced fracture of acromial process, unspecified shoulder, initial encounter for closed fracture
CPT/HCPCS: 73221

== ENCOUNTER → 2024-06-01 17:57 | Outpatient (BNV) | payer OTHER, SELFPAY | PROVIDERS: Visit Provider Radiology Diagnostic Radiology | DX: M77.8 Other enthesopathies, not elsewhere classified (principal) | CPT/HCPCS: 73221 ==

== ENCOUNTER 2024-07-06 09:09 | Outpatient (AMB) | payer OTHER, SELFPAY ==
--- NOTE | 2024-07-06 09:10 | A.OFFVIS_ITS ---
Vital Signs 07/06/24 09:11 Height 5 ft 9 in Weight 160 lb BMI 23.6 Intake Visit Reasons: Tel-MR shoulder RT review Intake Note: Jerry is a 33 year old male who is scheduled for a telephone visit to review MRI of right shoulder. 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 Cognitive needs: No Hearing needs: No Vision needs: No Physical Exam Vital Signs: BMI result Body Mass Index 23.6 Telehealth Telehealth Telehealth Platform: Telephone Location of provider rendering services: practice address Location of patient: address on file Patient Identification confirmed using: Name, : Yes Telehealth method: voice only Patient verbally consented to treatment: Yes Patient verbally consented to billing insurance company: Yes Patient informed of any privacy concerns related to visit: Yes Minutes spent on Phone/Video with Pt.: 10 Results Reviewed Results Reviewed: MR shoulder RT wo con IMPRESSION: Moderate osteoarthritis of the AC joint. Findings suggestive of a mild bursal surface partial tear of the distal supraspinatus tendon. Assessment & Plan Assessment & Plan (1) Osteoarthritis of right acromioclavicular joint: Code(s): M19.011 - Primary osteoarthritis, right shoulder Category: Medical (2) Partial tear of right rotator cuff: Code(s): M75.111 - Incomplete rotator cuff tear or rupture of right shoulder, not specified as traumatic Category: Medical Plan Discussed with the patient findings on MRI which include some arthritis and a bursal sided partial rotator cuff tear. I explained to the patient modification of activities would be helpful along with rotator cuff/periscapular stabilization exercises. I did offer an order for physical therapy however he states he is working on this on his own. I discussed with him benefits of steroid injection in the setting of arthritis which she would like to hold off on at this time. If symptoms persist or worsen he can contact our office to discuss injection otherwise follow up as needed. Coding Level of Care Code Tele Est Pt Level 3 (16412) Complex EM visit Add On G2211 Diagnoses Osteoarthritis of right acromioclavicular joint M19.011 Partial tear of right rotator cuff M75.111
[2024-07-06 09:11] VITALS: BMI 23.6
--- OUTSIDE RECORDS SUMMARY | 2024-07-06 09:48 | XMS_ITS | Continuity of Care Document ---
Author Name [facility] Organization [facility] Care Team Providers Care Maintenance Coordinator Name Role Phone [facility] Unavailable Unavailable Problems Combined list of problems from Department of Defense and Veterans Affairs facilities. It does not include entries that were removed or entered in error. 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, 2022 Entered By: Lavern DUNBAR Comment: 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 GI consult if IBS a problem in 2022 [facility] [place] [facility] Irritable bowel syndrome with diarrhoea Active Condition Oct 08, 2021 Entered By: Lavern DUNBAR Comment: vet had seen Dr Gerald soto [facility] in 2018/ trial of bentyl PRN [facility] [place] [facility] Traveler's diarrhoea Active Condition Jun 07, 2022 Entered By: Lavern DUNBAR Comment: vet hospitalized in [facility] and pos stool for Salmonella / symptoms resolving now that vet home-May 2022 [facility] [place] [facility] Diagnosis: ICD-10-CM S43.51XA Sprain of right acromioclavicular joint, initial encounter Active Diagnosis [facility] [place] [facility] Diagnosis: ICD-10-CM M25.511 Pain in right shoulder Active Diagnosis [facility] [place] [facility] Diagnosis: ICD-10-CM R52 Pain, unspecified Active Diagnosis [facility] Medications Combined list of outpatient medications from Department of Defense and Veterans Affairs facilities.Medications provided include 1) outpatient medications from the last 15 months, and 2) patient-reported medications. Medication Details Route Status Patient Instructions Prescription Expires Prescription Number Last Dispense Date Ordering Provider Order Date Order Qty Source DICLOFENAC NA 1% GEL,TOP APPLY 2 GRAMS TOPICALL Y FOUR TIMES A DAY FOR OSTEOART HRITIS - USE DOSING CARD PROVIDED IN BOX TOPICJerman Adams ACTIVE 07/05/2024 [id number] KADI MOONEY 2023 100 [facility] TRIAMCINOLO NE ACETONIDE 0.1% PASTE,DENTA L APPLY SMALL AMOUNT TOPICALL Y ONCE DAILY FOR PAINFUL, RED OR SWOLLEN MOUTH APPLY TO ORAL ULCERS TOPICA L 06/27/2024 [id number] OPAL PRASAD 2023 5 [facility] Immunizations Combined list of available immunizations from the Department of [facility] and Veterans [facility] facilities. Immunization Series Date Given Administered By Site Reaction Lot Number CVX Code Drug Veterinarian Laboratory Animal Care Status Comments Source TDAP 2021 115 complet ed [facility] COVID-19 (MODERNA), MRNA, LNP-S, PF, 100 MCG/0.5ML DOSE OR 50 MCG/0.25ML DOSE 2 2020 207 complet ed [facility] COVID-19 (MODERNA), MRNA, LNP-S, PF, 100 MCG/0.5ML DOSE OR 50 MCG/0.25ML DOSE 1 2020 207 complet ed [facility] Encounters Combined list of: 1) Encounters from Department of Veterans Affairs facilities going backup to the last 18 months, not all [place] inpatient encounters are included; 2) Encounters from the Department of Defense facilities going backup to 280 months. Location Location Details Encounter Type Encounter Number Reason For Visit Attending Provider ADM Date DC Date Status Dis[facility] En[facility] [id number] 01/10 [facility] [place] Encounter [id number] 01/27 [facility] [place] [place] Out[facility] Encounter [id number] 01/28 [facility] [place] Out[facility] Encounter [id number] 03/01 [facility] [place] [place] OFF[facility] O/P EST SF 10-19 MIN [id number] Diagnos is: ICD-10- CM R52 Pain, unspeci fied GAUNYA,CHR ISTOPHER M 03/03 [facility] [place] Encounter [id number] 03/03 [facility] [place] Out[facility] Encounter [id number] 03/07 [facility] [place] Out[facility] Encounter [id number] 03/14 [facility] [place] Out[facility] Encounter [id number] 03/18 [facility] [place] [place] Out[facility] Encounter [id number] 03/25 [facility] [place] Encounter [id number] 03/25 [facility] [place] Out[facility] Encounter [id number] 03/29 [facility] [place] THERAPEUTI C EXERCISES [id number] Diagnos is: ICD-10- CM M25.511 Pain in right shoulde r MAURIZIO TORRES LIE E 03/31 [facility] [place] Out[facility] En[facility] [id number] 04/12 [facility] [place] Outpatient Encounter [id number] 04/14 [facility] [place] THERAPEUTI C EXERCISES [id number] Diagnos is: ICD-10- CM M25.511 Pain in right shoulde r MAURIZIO TORRES LIE E 04/27 [facility] [place] [place] [facility] THERAPEUTI C EXERCISES [id number] Diagnos is: ICD-10- CM M25.511 Pain in right shoulde r MAURIZIO TORRES LIE E 05/10 [facility] [place] Out[facility] En[facility] [id number] 05/19 [facility] [place] [place] [facility] OFFICE O/P EST LOW 20 MIN [id number] Diagnos is: ICD-10- CM M25.511 Pain in right shoulde r ADRIA KRAUS 06/26 [facility] [place] [place] [facility] OFFICE O/P NEW LOW 30 MIN [id number] Diagnos is: ICD-10- CM S43.51X A Sprain of right acromio clavicu lar joint, initial encount er Gibran MOONEY L 07/04 [facility] [place] [facility] Outpatient Encounter [id number] Lavern KENNEY H 05[facility]21 [facility] Social History Combined list of available smoking, tobacco, and other social history from Department of Defense and Veterans Affairs facilities. Social History Type Response Date Comment Sourc e Tobacco smoking status NHIS PR-TOBACCO NEVER USED 06/27/2023 [facility] History of tobacco use PR-TOBACCO NEVER USED 09/30/2021 [facility] Plan of Care List of future care activities from Department of Veterans Affairs facilities. Additional future care activities may be listed in the Assessment and Plan section. Date/Time Care Activity Care Activity Detail Facili ty 08/01/2024 AMBULATORY - MEDICINE AMBULATORY - MEDICI [facility]
--- OUTSIDE RECORDS SUMMARY | 2024-07-06 09:48 | XMS_ITS | Encounter Summary ---
Author Name [facility] Organization [facility] Address [address] [place] [address] Care Team Providers [employer] Registrar Name Role Phone ADRIA DUNBAR Primary Care [...] Patient's Relationship to Policy [place] MEDICAID MEDICAID [facility] CAR T May 26, 2022 [id number] PATIENT Selected Encounter This section includes the information on record at [place] for the Encounter. Date/Time Encounter Type Encounter Description Reason Pro vider Source IHE Encounter Template Text not used by [facility]
== END 2024-07-06 09:17 | disposition home or self-care (01) ==
LOC: HO.HOS 09:09
PROVIDERS: PCP Internal Medicine; Visit Provider Physician Assistant
DX: M19.011 Primary osteoarthritis, right shoulder (principal); M75.111 Incomplete rotator cuff tear or rupture of right shoulder, not specified as traumatic
CPT/HCPCS: 98012

== ENCOUNTER → 2024-07-06 09:09 | Outpatient (BNVA) | payer OTHER, SELFPAY | PROVIDERS: PCP Internal Medicine; Visit Provider Physician Assistant ==